=== PATIENT | female | born 1990 | race Caucasian/White ===

== ENCOUNTER 2016-09-20 08:10 | Inpatient (IN) | payer MEDICAID ==
[~2016-09-20] VITALS: Ht 147.3 cm; Wt 59.1 kg
[2016-09-20] VITALS (7 sets, daily range): BP systolic 102–139; BP diastolic 59–87; PULSE 60–78; RESP 16–18; TEMP 97.1–98; O2SAT 97–99
[~2016-09-20 08:10] MED LIST: BENT20TA PO; CLON1 OR; CLON1 PO; COZA100T PO; HYDR-2768 PO; IBUP-232 PO; KETO10 PO; NAPR-576 PO; PROM25TA5 PO; ROXI5TAB4 PO
[2016-09-20] MEDS ORDERED: SODIUM CHLORIDE 0.9% FLUSH 5 ML FLUSH IVF PRN ×2 (08:30→12:15)
[2016-09-20] MEDS ORDERED: SODIUM CHLOR 0.9% 1000 ML INJ 1,000 ML IV SCH (08:30)
[2016-09-20] MEDS ORDERED: KETOROLAC TROMETHAMINE 30 MG/ML (IVP) VIAL IVP ONE (08:30)
--- NOTE | 2016-09-20 08:33 | PD ---
HPI Chief Complaint: Abdominal Pain Time Seen by Provider: 08:30 Travel History International Travel<30 days: No Contact w/Intl Traveler<30days: No Traveled to known affect area: No History of Present Illness HPI 26-year-old female with history of previous hysterectomy and appendectomy, presents to the ER today because she started having a sudden onset 10 out 10 right lower quadrant pain with radiation to the right flank last night. She denies any vomiting, fevers, urinary symptoms, vaginal discharge, or any other symptoms. Modifying Factors: None Associated Signs & Symptoms: Right flank pain and right lower quadrant pain Risk Factors: None PFSH Past Medical History Hx Anticoagulant Therapy: No Anemia: Yes Cancer: No Chemotherapy: No Cerebrovascular Accident: No Diabetes: No Diminished Hearing: No Hypertension: Yes Neurologic: Yes (ptsd) Psychiatric: No Respiratory: No Seizures: No Thyroid Disease: No Ulcer: No Tetanus Vaccination: < 5 Years Influenza Vaccination: No ?: Not Past Surgical History Appendectomy: Yes Gynecologic Surgery: Yes (HYSTERECTOMY) Hysterectomy: Yes Social History Alcohol Use: Yes (OCASSIONALLY) Tobacco Use: Yes (1 PACK EVERY 3 DAYS) Substance Use: No Allergies-Medications (Allergen,Severity, Reaction): Coded Allergies: Codeine (Verified Allergy, Severe, Rash, 09/20/16) Latex (Verified Allergy, Severe, Rash, 09/20/16) Morphine (Verified Allergy, Severe, Rash, 09/20/16) Sulfa (Verified Allergy, Severe, Rash, 09/20/16) Reported Meds & Prescriptions Reported Meds & Active Scripts Active No Active Prescriptions or Reported Medications Review of Systems Except as stated in HPI: all other systems reviewed are Neg Physical Exam Narrative GENERAL: Well-nourished, well-developed young white female patient in mild distress. SKIN: Warm and dry. HEAD: Normocephalic. EYES: No scleral icterus. No injection or drainage. NECK: Supple, trachea midline. No JVD or lymphadenopathy. CARDIOVASCULAR: Regular rate and rhythm without murmurs, gallops, or rubs. RESPIRATORY: Breath sounds equal bilaterally. No accessory muscle use. GASTROINTESTINAL: Abdomen soft, right lower quadrant tenderness without guarding or rebound, nondistended. MUSCULOSKELETAL: No cyanosis, or edema. BACK: Nontender without obvious deformity. Mild right CVA tenderness. Data Data Last Documented VS Vital Signs Date Time Temp Pulse Resp B/P Pulse Ox O2 Delivery O2 Flow Rate FiO2 09/20/16 10:00 97.8 78 16 130/76 99 Room Air Orders Complete Blood Count With Diff (09/20/16 08:30) Comprehensive Metabolic Panel (09/20/16 08:30) Urinalysis - C+S If Indicated (09/20/16 08:30) Ct Abd/Pel W/O Iv Contrast (09/20/16 08:30) Iv Access Insert/Monitor (09/20/16 08:30) Ecg Monitoring (09/20/16 08:30) Oximetry (09/20/16 08:30) Sodium Chlor 0.9% 1000 Ml Inj (Ns 1000 M (09/20/16 08:30) Sodium Chloride 0.9% Flush (Ns Flush) (09/20/16 08:30) Ketorolac Inj (Toradol Inj) (09/20/16 08:30) Us Pelvis Comp W Dop Transvag (09/20/16 09:20) Diet Npo (09/20/16 Lunch) ^ Preps (09/20/16 12:04) Sodium Chloride 0.9% Flush (Ns Flush) (09/20/16 12:15) Lactated Ringer's 1000 Ml Inj (Lr 1000 M (09/20/16 12:00) Sodium Chloride 0.9% Flush (Ns Flush) (09/20/16 12:15) Cefazolin Inj (Ancef Inj) (09/20/16 12:15) Labs Laboratory Tests Test 09/20/16 09/20/16 08:25 08:30 Urine Color LIGHT-YELLOW Urine Turbidity CLEAR Urine pH 5.5 Urine Specific [place] 1.016 Urine Protein NEG mg/dL Urine Glucose (UA) NEG mg/dL Urine Ketones NEG mg/dL Urine Occult Blood NEG Urine Nitrite NEG Urine Bilirubin NEG Urine Urobilinogen LESS THAN 2.0 MG/DL Urine Leukocyte Esterase NEG Urine RBC 1 /hpf Urine WBC LESS THAN 1 /hpf Urine Squamous Epithelial 2 /hpf Cells Urine Bacteria RARE /hpf Microscopic Urinalysis Comment CULT NOT INDICATED White Blood Count 9.1 TH/MM3 Red Blood Count 5.03 MIL/MM3 Hemoglobin 16.1 GM/DL Hematocrit 46.0 % Mean Corpuscular Volume 91.5 FL Mean Corpuscular Hemoglobin 32.0 PG Mean Corpuscular Hemoglobin 35.0 % Concent Red Cell Distribution Width 12.8 % Platelet Count 267 TH/MM3 Mean Platelet Volume 8.4 FL Neutrophils (%) (Auto) 56.8 % Lymphocytes (%) (Auto) 33.6 % Monocytes (%) (Auto) 5.4 % Eosinophils (%) (Auto) 3.1 % Basophils (%) (Auto) 1.1 % Neutrophils # (Auto) 5.2 TH/MM3 Lymphocytes # (Auto) 3.1 TH/MM3 Monocytes # (Auto) 0.5 TH/MM3 Eosinophils # (Auto) 0.3 TH/MM3 Basophils # (Auto) 0.1 TH/MM3 CBC Comment DIFF FINAL Differential Comment Sodium Level 137 MEQ/L Potassium Level 4.4 MEQ/L Chloride Level 105 MEQ/L Carbon Dioxide Level 24.8 MEQ/L Anion Gap 7 MEQ/L Blood Urea Nitrogen 13 MG/DL Creatinine 1.04 MG/DL Estimat Glomerular Filtration 63 ML/MIN Rate Random Glucose 98 MG/DL Calcium Level 8.6 MG/DL Total Bilirubin 0.6 MG/DL Aspartate Amino Transf 20 U/L (AST/SGOT) Alanine Aminotransferase 23 U/L (ALT/SGPT) Alkaline Phosphatase 68 U/L Total Protein 7.5 GM/DL Albumin 4.0 GM/DL MDM Medical Decision Making Medical Screen Exam Complete: Yes Emergency Medical Condition: Yes Medical Record Reviewed: Yes Interpretation(s) Laboratory Tests Test 09/20/16 09/20/16 08:25 08:30 Urine Bacteria RARE /hpf (NONE) Hemoglobin 16.1 GM/DL (11.6-15.3) Creatinine 1.04 MG/DL (0.50-1.00) Estimat Glomerular Filtration 63 ML/MIN (>89) Rate Last 24 hours Impressions Abdomen/Pelvis/Transvag US 09/20/16 0920 Signed Impressions: Service Date/Time: Tuesday, September 20, 2016 10:16 - CONCLUSION: Thoracic uterus. Right ovary is enlarged relative left with both ovaries having follicular cysts . The right ovary raises the question as to This asymmetry representing exophytic normal tissue superior medially and there is a question as to limited vascular flow in a portion of the right ovary which would then raising question as to torsion or partial torsion Zaire Minor MD Abdomen/Pelvis CT 09/20/16 0830 Signed Impressions: Service Date/Time: Tuesday, September 20, 2016 08:41 - CONCLUSION: Surgical clips in the right lower quadrant adnexa associated 3.3 cm soft tissue density most likely ovarian with a history of prior hysterectomy. Clips in place prior appendectomy. Zaire Minor MD Differential Diagnosis Right lower quadrant and flank painsrenal colic versus pyelonephritis versus musculoskeletal Narrative Course Lab work initial CAT scan did not show any signs of acute processes. Ultrasound shows a right ovarian torsion. Case was discussed with Dr. Whipple who states the patient will need same-day surgery and evaluation with Dr. Smith. Diagnosis Primary Impression: TORSION OF RIGHT OVARY AND OVARIAN PEDICLE Admitting Information Admitting Physician Requests: Admit Scripts No Active Prescriptions or Reported Meds Jeanne Austin MD Sep 20, 2016 08:33
[2016-09-20 08:46] LABS: AUTOMATED NEUTROPHIL # 5.2 TH/MM3 (1.8-7.7); BASOPHIL # 0.1 TH/MM3 (0-0.2); BASOPHIL % 1.1 % (0.0-2.0); EOSINOPHIL # 0.3 TH/MM3 (0-0.4); EOSINOPHIL % 3.1 % (0.0-4.0); HEMO FLAGS DIFF FINAL; LYMPH % 33.6 % (9.0-44.0); LYMPHOCYTE # 3.1 TH/MM3 (1.0-4.8); MEAN CELL VOLUME 91.5 FL (80.0-100.0); MONO % 5.4 % (0.0-8.0); NEUT % 56.8 % (16.0-70.0); PLATELET COUNT 267 TH/MM3 (150-450); RED BLOOD COUNT 5.03 MIL/MM3 (4.00-5.30); RED CELL DISTRIBUTION WIDTH 12.8 % (11.6-17.2); WHITE BLOOD COUNT 9.1 TH/MM3 (4.0-11.0)
[2016-09-20 08:58] LABS: BACTERIA, URINE RARE /hpf; BLOOD, URINE NEG (NEG); COMMENT (UR) CULT NOT INDICATED; CULTURE IF INDICATED CULT NOT INDICATED; GLUCOSE,URINE NEG (NEG); KETONE, URINE NEG (NEG); NITRITE,URINE NEG (NEG); PH, URINE 5.5 (5.0-8.5); SQUAMOUS EPITHELIAL CELL URINE 2 /hpf (0-5); URINE COLOR LIGHT-YELLOW (YELLW/STRAW)
--- NOTE | 2016-09-20 09:14 | RADRPT ---
EXAM DATE/TIME: 09/20/2016 08:41 [facility] COMPARISON: No previous studies available for comparison. INDICATIONS : Right lower quadrant pain and nausea. ORAL CONTRAST: No oral contrast ingested. RADIATION DOSE: 24.77 CTDIvol (mGy) MEDICAL HISTORY : Hypertension. SURGICAL HISTORY : Appendectomy. Hysterectomy. ENCOUNTER: Initial ACUITY: 1 day PAIN SCALE: 4/10 LOCATION: None given TECHNIQUE: Volumetric scanning of the abdomen and pelvis was performed. Using automated exposure control and ad justment of the mA and/or kV according to patient size, radiation dose was kept as low as reasonably achievable to obtain optimal diagnostic quality images. FINDINGS: LOWER LUNGS: No acute process LIVER: Homogeneous density without lesion. There is no dilation of the biliary tree. No calcified gallston es. Gallbladder there is a luminal structure without wall thickening. SPLEEN: Normal size without lesion. PANCREAS: Within normal limits. KIDNEYS: Normal in size and shape. There is no mass, stone, or hydronephrosis. ADRENAL GLANDS: Within normal limits. VASCULAR: There is no aortic aneurysm. BOWEL/MESENTERY: The stomach, small bowel, and colon demonstrate no acute abnormality. There is no free intraperitone al air or fluid. Surgical clips are noted in the retrocecal region consistent with prior appendectomy . ABDOMINAL WALL: Within normal limits. RETROPERITONEUM: There is no lymphadenopathy. BLADDER: No wall thickening or mass. REPRODUCTIVE: Apparent hysterectomy prominent vaginal cuff. Surgical clips in the right adnexa associated with a 3. 3 cm soft tissue density possibly ovarian there INGUINAL: There is no lymphadenopathy or hernia. MUSCULOSKELETAL: Within normal limits for patient age. CONCLUSION: Surgical clips in the right lower quadrant adnexa associated 3.3 cm soft tissue density most likely o varian with a history of prior hysterectomy. Clips in place prior appendectomy. Zaire Minor MD on September 20, 2016 at 9:08 Board Certified Radiologist. This report was verified electronically.
[2016-09-20 09:17] LABS: ALKALINE PHOSPHATASE 68 U/L (45-117); ALT (GPT) 23 U/L (10-53); ANION GAP 7 MEQ/L (5-15); AST (GOT) 20 U/L (15-37); BICARBONATE 24.8 MEQ/L (21.0-32.0); BLOOD UREA NITROGEN 13 MG/DL (7-18); CHLORIDE 105 MEQ/L (98-107); GLOMERULAR FILTRATION RATE 63 ML/MIN (>89); POTASSIUM 4.4 MEQ/L (3.5-5.1); SODIUM (NA) 137 MEQ/L (136-145); TOTAL BILIRUBIN ADULT 0.6 MG/DL (0.2-1.0)
--- NOTE | 2016-09-20 11:22 | RADRPT ---
EXAM DATE/TIME: 09/20/2016 10:16 [facility] COMPARISON: CT ABDOMEN & PELVIS W/O CONTRAST, September 20, 2016, 8:41. INDICATIONS : Right pelvic pain. MEDICAL HISTORY : Right pelvic pain. SURGICAL HISTORY : Hysterectomy. ENCOUNTER: Initial ACUITY: 1 day PAIN SCORE: 8/10 LOCATION: Bilateral Paraspinal MEASUREMENTS: RIGHT OVARY: 6.2 x 3.2 x 2.1 cm LEFT OVARY: 4.1 x 2.5 x 2.0 cm UTERUS: Surgically absent RIGHT OVARY: 4.5 x 5.2 x 2.5 cm LEFT OVARY: 2.9 x 3.9 x 1.7 cm cm FINDINGS: Uterus is surgically absent. Left ovary is visualized to be normal with small follicular cysts. Right ovary is enlarged relative to the left with follicular cysts and question if this soft tissue densit y mass projecting off the superior aspect and/or medial aspect with arterial flow in the majority of the right ovary and questionable absence of arterial flow in a portion of the ovary. Possibility of t orsion or partial torsion is not excludable.. CONCLUSION: Thoracic uterus. Right ovary is enlarged relative left with both ovaries having follicular cysts . Th e right ovary raises the question as to This asymmetry representing exophytic normal tissue superior medially and there is a question as to l imited vascular flow in a portion of the right ovary which would then raising question as to torsion or partial torsion Zaire Minor MD on September 20, 2016 at 11:16 Board Certified Radiologist. This report was verified electronically.
[2016-09-20] MEDS: LACTATED RINGER'S 1000 ML INJ 1,000 ML IV SCH ×2 (12:00→20:00)
[2016-09-20] MEDS ORDERED: SODIUM CHLORIDE 0.9% FLUSH 5 ML FLUSH IVF SCH (12:15)
--- NOTE | 2016-09-20 12:30 | HHI.HP ---
HPI Chief Complaint Possible ovarian torsion, sudden onset of right adnexal pain Date Seen: Sep 20, 2016 Time Seen: 12:00 Travel History International Travel<30 Days: No Contact w/Intl Traveler<30Days: No Known Affected Area: No History of Present Illness HPI 26-year-old , patient presents to the emergency room with complaints of sudden onset of sharp and excruciating right lower quadrant pain, pain started last night and continued all night and this morning patient decided to come to the emergency room to seek medical help, the patient stated her pain is constant and associated with nausea, she denies vomiting, fever, chills. Pain score is 10 out of 10. Patient is status post laparoscopic hysterectomy in May 2015, status post appendectomy. Patient underwent evaluation with a pelvic ultrasound which reveals uterus is surgically absent. Left ovary is visualized to be normal with small follicular cyst. Right ovary is enlarged relative to the left with follicular cysts and questionable soft tissue density mass projecting off the superior aspect and all medial aspect of the right ovary with arterial flow in the majority of the right ovary and questionable absence of arterial flow in her portion of the ovary. Possibility of ovarian torsion or partial torsion is not excludable. Conclusion absent uterus, right ovary is enlarged relative to the left with both ovaries having follicular cysts. The right ovary raises the question as to possible torsion or partial torsion Based on the above findings the HANDLE ROUNDER OPERATOR consult was requested. Para: 3 : 3 Miscarriage: 0 : 0 History Past Medical History Narrative Medical History of endometriosis, depressive disorder, anxiety disorder. Obstetric History Obstetric History Spontaneous vaginal delivery 3 Past Surgical History Narrative Surgical 1. Status post laparoscopic hysterectomy in May 2015 due to endometriosis 2. Status post appendectomy Family History Narrative Family History Significant for mother with ovarian cancer, grandfather with colon cancer, cousin with cervical cancer, also family history significant for hypertension and diabetes. Social History Alcohol Use: No Tobacco Use: Yes (patient's postoperative pack of cigarettes a day) Substance Abuse: No Allergies-Medications (Allergen,Severity, Reaction): Coded Allergies: Codeine (Verified Allergy, Severe, Rash, 09/20/16) Latex (Verified Allergy, Severe, Rash, 09/20/16) Morphine (Verified Allergy, Severe, Rash, 09/20/16) Sulfa (Verified Allergy, Severe, Rash, 09/20/16) Home Meds No Active Prescriptions or Reported Meds Review of Systems Except as stated in HPI: all other systems reviewed are Neg Gastrointestinal: Nausea, Abdominal Pain Genitourinary: Other (a right lower quadrant pain, right adnexal pain) Physical Exam Narrative GENERAL: Well-nourished, well-developed patient. SKIN: Warm and dry. HEAD: Normocephalic and atraumatic. EYES: No scleral icterus. No injection or drainage. ENT: No nasal drainage noted. Mucous membranes pink. Airway patent. NECK: Supple, trachea midline. No JVD. CARDIOVASCULAR: Regular rate and rhythm without murmurs, gallops, or rubs. RESPIRATORY: Breath sounds equal bilaterally. No accessory muscle use. BREASTS: Bilateral exam showed no masses , no retractions, no nipple discharge. ABDOMEN/GI: Abdomen soft, non-tender, bowel sounds present, minimal rebound, moderate guarding GENITOURINARY: External Genitalia: intact and normal in appearance BUS glands: Normal PELVIC EXAM: severe tenderness in the right adnexa is noted with minimal rebound and guarding, Cervix and uterus are surgically absent EXTREMITIES: No cyanosis or edema. BACK: Nontender without obvious deformity. No CVA tenderness. NEUROLOGICAL: Awake and alert. Motor and sensory grossly within normal limits. Five out of 5 muscle strength in all muscle groups. Normal speech. Data Data Vital Signs Reviewed: Yes Orders Complete Blood Count With Diff (09/20/16 08:30) Comprehensive Metabolic Panel (09/20/16 08:30) Urinalysis - C+S If Indicated (09/20/16 08:30) Ct Abd/Pel W/O Iv Contrast (09/20/16 08:30) Iv Access Insert/Monitor (09/20/16 08:30) Ecg Monitoring (09/20/16 08:30) Oximetry (09/20/16 08:30) Sodium Chlor 0.9% 1000 Ml Inj (Ns 1000 M (09/20/16 08:30) Sodium Chloride 0.9% Flush (Ns Flush) (09/20/16 08:30) Ketorolac Inj (Toradol Inj) (09/20/16 08:30) Us Pelvis Comp W Dop Transvag (09/20/16 09:20) Diet Npo (09/20/16 Lunch) ^ Preps (09/20/16 12:04) Sodium Chloride 0.9% Flush (Ns Flush) (09/20/16 12:15) Lactated Ringer's 1000 Ml Inj (Lr 1000 M (09/20/16 12:04) Sodium Chloride 0.9% Flush (Ns Flush) (09/20/16 12:15) Cefazolin Inj (Ancef Inj) (09/20/16 12:15) Labs Laboratory Tests Test 09/20/16 09/20/16 08:25 08:30 Urine Color LIGHT-YELLOW Urine Turbidity CLEAR Urine pH 5.5 Urine Specific [place] 1.016 Urine Protein NEG Urine Glucose (UA) NEG Urine Ketones NEG Urine Occult Blood NEG Urine Nitrite NEG Urine Bilirubin NEG Urine Urobilinogen LESS THAN 2.0 Urine Leukocyte Esterase NEG Urine RBC 1 Urine WBC LESS THAN 1 Urine Squamous Epithelial 2 Cells Urine Bacteria RARE Microscopic Urinalysis Comment CULT NOT INDICATED White Blood Count 9.1 Red Blood Count 5.03 Hemoglobin 16.1 Hematocrit 46.0 Mean Corpuscular Volume 91.5 Mean Corpuscular Hemoglobin 32.0 Mean Corpuscular Hemoglobin 35.0 Concent Red Cell Distribution Width 12.8 Platelet Count 267 Mean Platelet Volume 8.4 Neutrophils (%) (Auto) 56.8 Lymphocytes (%) (Auto) 33.6 Monocytes (%) (Auto) 5.4 Eosinophils (%) (Auto) 3.1 Basophils (%) (Auto) 1.1 Neutrophils # (Auto) 5.2 Lymphocytes # (Auto) 3.1 Monocytes # (Auto) 0.5 Eosinophils # (Auto) 0.3 Basophils # (Auto) 0.1 CBC Comment DIFF FINAL Differential Comment Sodium Level 137 Potassium Level 4.4 Chloride Level 105 Carbon Dioxide Level 24.8 Anion Gap 7 Blood Urea Nitrogen 13 Creatinine 1.04 Estimat Glomerular Filtration 63 Rate Random Glucose 98 Calcium Level 8.6 Total Bilirubin 0.6 Aspartate Amino Transf 20 (AST/SGOT) Alanine Aminotransferase 23 (ALT/SGPT) Alkaline Phosphatase 68 Total Protein 7.5 Albumin 4.0 Assessment/Plan Problem List: (1) Right lower quadrant abdominal pain (2) Ovarian torsion Assessment and Plan 26-year-old 003 with sudden onset of right lower quadrant abdominal pain, ultrasound shows possible right ovarian torsion. Patient is hemodynamically stable. Patient seen by Dr. Hicks and she recommended the following 1. Possible right ovarian torsion/abdominal pain * Will admit patient to HANDLE ROUNDER OPERATOR service * Patient may eat and drink * Serial abdominal exams * IV fluids hydration * Pain management Dr. Cathy Omer is notified and also saw the patient Discharge Planning We'll discharge patient to home after evaluation and treatment is accomplished Daniele Harris MD Sep 20, 2016 12:30 Daniele Harris MD Sep 20, 2016 12:30
[2016-09-20] MEDS ORDERED: LACTATED RINGER'S 1000 ML INJ 1,000 ML IV SCH (14:00)
[2016-09-20] MEDS ORDERED: KETOROLAC TROMETHAMINE 60 MG/2 ML (IM) VIAL IM PRN (14:00)
[2016-09-20] MEDS ORDERED: SODIUM CHLORIDE 0.9% FLUSH 5 ML FLUSH IV FLUSH PRN (14:00)
[2016-09-20] MEDS: SODIUM CHLORIDE 0.9% FLUSH 5 ML FLUSH IV FLUSH SCH ×2 (14:39→21:16)
[2016-09-20] MEDS: oxyCODONE/ACETAMINOPHEN 5 MG/325 MG TAB PO PRN ×2 (14:39→21:14)
--- NOTE | 2016-09-20 18:31 | MB ---
cc: SUSANA VILLAREAL MD DATE OF CONSULTATION 09/20/[address] Chanel Whipple HISTORY OF PRESENT ILLNESS The patient is a 26-year-old 3, para 0-3-0-3. The patient presents to the ER with right lower quadrant pain. She states the pain came on last evening after taking a shower and lying down. She says the pain is worse with certain movements and radiates around to her back. She also had some nausea. She denies fever or chills. She also denies vomiting, no change in her bowels, maybe slightly more frequent urination. No pain with urination. She wants to avoid surgery if possible. PAST MEDICAL HISTORY Significant for endometriosis. PAST OBSTETRICAL HISTORY She had three pregnancies with vaginal deliveries, all around 32 weeks gestation. PAST SURGICAL HISTORY 1. She had a laparoscopic hysterectomy with bilateral salpingectomies in May 2015 with a doctor near [place] who she does not recall the name of. 2. She has also had an appendectomy. FAMILY HISTORY Noncontributory. SOCIAL HISTORY The patient drinks alcohol socially. She smokes cigarettes and also smokes marijuana occasionally. 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 ALLERGIES CODEINE LATEX MORPHINE SULFA MEDICATIONS At home are none. PHYSICAL EXAMINATION VITAL SIGNS: She is afebrile. Her vitals are all stable. HEART: Regular rate and rhythm. LUNGS: Clear to auscultation bilaterally. ABDOMEN: Soft, nondistended. There is mild right lower quadrant tenderness. There is no rebound. There is minimal guarding. EXTREMITIES: Lower extremities are nontender, non edematous. PELVIC: On bimanual exam, the cervix is absent. No adnexal masses are palpated. The patient does have mild right lower quadrant tenderness. LABORATORY DATA White count of 9, hemoglobin of 16.1, hematocrit of 46 and platelets of 267. Chemistries are within normal limits except for creatinine elevated at 1.04. Liver enzymes were grossly within normal limits. Her urine also appears negative, culture not indicated. IMAGING STUDIES Ultrasound - uterus is surgically absent. Left ovary grossly normal, right ovary with blood flow to most of the ovary. The right ovary is also slightly enlarged measuring 4.5 x 5.2 x 2 cm. Possible torsion could not be ruled out on the report. IMPRESSION 1. Pelvic pain. No evidence for an acute surgical abdomen. I did review options with the patient of proceeding to surgery now versus a trial of pain medications to see if her pain improves. If the patient's pain worsens and is unable to be controlled with pain medications, we would perform a diagnostic laparoscopy. The patient prefers conservative management. At this point, would recommend treating the patient with Toradol around the clock and assessing for improvement. Please call with any additional problems or concerns. MD JOSE El/ /1:07 PM /6:11 PM [facility]
[2016-09-21] VITALS: BP 121/82; PULSE 60; RESP 16; TEMP 97.5; O2SAT 100
[2016-09-21 04:00] VITALS: BP 109/68; PULSE 88; RESP 14; TEMP 97.7; O2SAT 98
[2016-09-21] MEDS: LACTATED RINGER'S 1000 ML INJ 1,000 ML IV SCH (04:00)
[2016-09-21] MEDS: oxyCODONE/ACETAMINOPHEN 5 MG/325 MG TAB PO PRN ×2 (05:30→09:32)
[2016-09-21 08:00] VITALS: BP 100/62; PULSE 59; RESP 16; TEMP 96.8; O2SAT 100
[2016-09-21] MEDS: SODIUM CHLORIDE 0.9% FLUSH 5 ML FLUSH IV FLUSH SCH (09:12)
[2016-09-21] MEDS ORDERED: PERC2.5T PO (11:19)
[2016-09-21] MEDS ORDERED: IBUP-232 PO (11:19)
--- NOTE | 2016-09-21 11:29 | HHI.PR ---
Subjective Remarks This patient 26-year-old white female with history of hysterectomy in the past now with right lower quadrant pain. She is admitted for observation and control of pain. Initial ultrasound was suspicious for possible torsion. Today the patient states that her pain is much better she's feeling better she' s able to eat go to the bathroom without problem Exam-abdomen is flat essentially nontender in all quadrants no rebound pain no masses noted Impression is likely ruptured ovarian cyst right side it is improving spontaneously, plan is discharge the patient home with a few Percocets and Motrin 600 mg she is to have increased rest of the next 2-3 days, and return for any worsening symptoms. Objective Vital Signs Date Time Temp Pulse Resp B/P Pulse Ox O2 Delivery O2 Flow Rate FiO2 09/21/16 08:00 96.8 59 16 100/62 100 09/21/16 04:00 97.7 88 14 109/68 98 09/21/16 00:00 97.5 60 16 121/82 100 09/20/16 20:00 97.1 65 16 121/87 99 09/20/16 16:00 98.0 64 16 114/67 09/20/16 14:00 97.3 60 18 107/59 99 09/20/16 12:33 97.8 76 16 102/71 99 I/O 09/20/16 09/20/16 09/20/16 09/21/16 09/21/16 09/21/16 07:00 15:00 23:00 07:00 15:00 23:00 Intake Total 720 ml 960 ml Balance 720 ml 960 ml Intake Oral 720 ml 960 ml # Voids 3 2 # Bowel Movements 0 Result Diagram: 09/20/1630 09/20/1630 Pawel Branch II, MD Sep 21, 2016 11:29
== END 2016-09-21 11:53 | disposition home or self-care (01) | DRG 761 ==
LOC: NEPC 08:10 → HSDC 12:22 → HSDI 14:01 → HOCA 14:23
PROVIDERS: ADMIT Obstetrics & Gynecology; ATTEND Obstetrics & Gynecology
DX: N83.02 Follicular cyst of left ovary (principal); N83.01 Follicular cyst of right ovary; I10 Essential (primary) hypertension; Z90.710 Acquired absence of both cervix and uterus; F43.10 Post-traumatic stress disorder, unspecified; F17.210 Nicotine dependence, cigarettes, uncomplicated; Z90.49 Acquired absence of other specified parts of digestive tract; Z80.41 Family history of malignant neoplasm of ovary; Z80.0 Family history of malignant neoplasm of digestive organs; Z80.8 Family history of malignant neoplasm of other organs or systems
CPT/HCPCS: 74176; 76830; 76856; 80053; 81001; 85025; 93975; 96361; 96374; J1885; J7030

== ENCOUNTER 2017-08-19 11:18 | Emergency (ER) | payer SELFPAY ==
[~2017-08-19] VITALS: Ht 149.9 cm; Wt 49.1 kg
[~2017-08-19 11:18] MED LIST changes: -BENT20TA PO; -CLON1 OR; -CLON1 PO; -COZA100T PO; -HYDR-2768 PO; -KETO10 PO; -NAPR-576 PO; +PERC2.5T PO; -PROM25TA5 PO; -ROXI5TAB4 PO
[2017-08-19 11:27] VITALS: BP 126/87; PULSE 86; RESP 16; TEMP 99; O2SAT 99
--- NOTE | 2017-08-19 11:50 | PD ---
HPI Chief Complaint: Skin Problem Time Seen by Provider: 11:36 Travel History International Travel<30 days: No Contact w/Intl Traveler<30days: No Traveled to known affect area: No History of Present Illness HPI 27-year-old female presents to the emergency department for evaluation of bilateral breast pain, worse in the left with lumps in her left breast as well as a lymph node to her left axilla. Patient states the symptoms have been ongoing for approximately 2 months. Patient denies any personal history of breast cancer, but states that her cousin who is 32 was just diagnosed with breast cancer. She reports subjective chills. No fevers. No other symptoms or complaints. She does report history of hysterectomy. No exacerbating or alleviating factors. Moderate severity. PFSH Past Medical History Hx Anticoagulant Therapy: No Anemia: Yes Anxiety: Yes Cancer: Yes (cervix) Cardiovascular Problems: Yes (htn, not on meds) Chemotherapy: No Cerebrovascular Accident: No Diabetes: No Diminished Hearing: No Hypertension: Yes Neurologic: Yes (ptsd) Psychiatric: No Respiratory: No Immunizations Current: Yes Seizures: No Thyroid Disease: No Ulcer: No ?: Not Past Surgical History Appendectomy: Yes Gynecologic Surgery: Yes (HYSTERECTOMY) Hysterectomy: Yes Other Surgery: No Social History Alcohol Use: No Tobacco Use: Yes (patient's postoperative pack of cigarettes a day) Substance Use: No Allergies-Medications (Allergen,Severity, Reaction): Coded Allergies: Sulfa (Sulfonamide Antibiotics) (Unverified Allergy, Severe, Rash, ) codeine (Unverified Allergy, Severe, Rash, 08/19/17) latex (Unverified Allergy, Severe, Rash, 08/19/17) morphine (Unverified Allergy, Severe, Rash, 08/19/17) Reported Meds & Prescriptions Reported Meds & Active Scripts Active No Active Prescriptions or Reported Medications Review of Systems Except as stated in HPI: all other systems reviewed are Neg Physical Exam Narrative GENERAL: Well-nourished, well-developed female patient, ambulatory. Afebrile. SKIN: Focused skin assessment warm/dry. No erythema or warmth of her bilateral breasts. No evidence of cellulitis or abscess. Patient has tenderness throughout left breast with what appears to be polycystic breast. She does have a small lymph node to the left axilla that is tender to palpation. HEAD: Normocephalic. Atraumatic. EYES: No scleral icterus. No injection or drainage. NECK: Supple, trachea midline. No JVD or lymphadenopathy. CARDIOVASCULAR: Regular rate and rhythm without murmurs, gallops, or rubs. RESPIRATORY: Breath sounds equal bilaterally. No accessory muscle use. Lungs sounds are clear to auscultation. GASTROINTESTINAL: Abdomen soft, non-tender, nondistended. MUSCULOSKELETAL: No cyanosis, or edema. Data Data Last Documented VS Vital Signs Date Time Temp Pulse Resp B/P (MAP) Pulse Ox O2 Delivery O2 Flow Rate FiO2 08/19/17 11:27 99.0 86 16 126/87 (100) 99 Room Air Orders Orders Mandatory Outpatient Referral (08/19/17 11:42) MDM Medical Decision Making Medical Screen Exam Complete: Yes Emergency Medical Condition: Yes Medical Record Reviewed: Yes Differential Diagnosis Polycystic breast versus breast mass versus cellulitis versus abscess Narrative Course 27-year-old female presents to the emergency department for evaluation of breath pain, lumps to her breast. Physical exam reveals tenderness throughout the left breast with what appears to be multiple lumps or cysts. She does have a lymph node to the left axilla. No evidence of cellulitis, abscess on exam. Mandatory referral was placed for breast Navigator. She verbalizes agreement to this. She is return here for any acute worsening of symptoms including fever , erythema, warmth, evidence of infection. The patient was discharged in stable condition with instructions, including return instructions and follow up instructions. Diagnosis Primary Impression: Breast pain in female Referrals: Primary Care Physician call for appointment Patient Instructions: Breast Self Exam for Women (ED), General Instructions Additional Instructions: A mandatory referral was placed. They will be in contact for further evaluation. Follow-up with your primary care physician. Return to the emergency department for any acute worsening of symptoms. Med/Other Pt SpecificInfo: No Change to Meds Scripts No Active Prescriptions or Reported Meds Disposition: 01 DISCHARGE HOME Condition: Stable Cathy Romero KEENAN Aug 19, 2017 11:50
== END 2017-08-19 12:10 | disposition home or self-care (01) ==
LOC: NEPD 11:18
DX: N64.4 Mastodynia (principal); N63.20 Unspecified lump in the left breast, unspecified quadrant; F17.210 Nicotine dependence, cigarettes, uncomplicated
CPT/HCPCS: 99282

== ENCOUNTER 2018-02-12 13:53 | Emergency (ER) | payer OTHER, MEDICAID ==
[~2018-02-12] VITALS: Ht 162.6 cm; Wt 65.0 kg
[2018-02-12 14:02] VITALS: BP 137/64; PULSE 71; RESP 22; TEMP 98.5; O2SAT 99
[2018-02-12 14:13] VITALS: BP 137/64; PULSE 69; RESP 16; O2SAT 95
[2018-02-12] MEDS ORDERED: ACETAMINOPHEN/HYDROcodone 325 MG/5 MG TAB PO ONE (14:15)
[2018-02-12 14:53] LABS: AUTOMATED NEUTROPHIL # 5.4 TH/MM3 (1.8-7.7); BASOPHIL # 0.1 TH/MM3 (0-0.2); BASOPHIL % 0.8 % (0.0-2.0); EOSINOPHIL # 0.2 TH/MM3 (0-0.4); EOSINOPHIL % 2.1 % (0.0-4.0); HEMATOCRIT 41.2 % (35.0-46.0); LYMPH % 26.7 % (9.0-44.0); LYMPHOCYTE # 2.3 TH/MM3 (1.0-4.8); MEAN CELL VOLUME 90.5 FL (80.0-100.0); MEAN CORPUSCULAR HEMOGLOBIN 30.7 PG (27.0-34.0); MEAN PLATELET VOLUME 8.5 FL (7.0-11.0); MONO % 6.2 % (0.0-8.0); MONOCYTE # 0.5 TH/MM3 (0-0.9); NEUT % 64.2 % (16.0-70.0); PLATELET COUNT 193 TH/MM3 (150-450); RED BLOOD COUNT 4.55 MIL/MM3 (4.00-5.30); RED CELL DISTRIBUTION WIDTH 12.7 % (11.6-17.2); WHITE BLOOD COUNT 8.4 TH/MM3 (4.0-11.0)
[2018-02-12 15:24] LABS: AST (GOT) 15 U/L (15-37); BICARBONATE 22.9 MEQ/L (21.0-32.0); BLOOD UREA NITROGEN 13 MG/DL (7-18); CALCIUM 8.5 MG/DL (8.5-10.1); CHLORIDE 109 MEQ/L (98-107); CREATININE 0.92 MG/DL (0.50-1.00); GLOMERULAR FILTRATION RATE 72 ML/MIN (>89); GLUCOSE,RANDOM 98 MG/DL (74-106); SODIUM (NA) 141 MEQ/L (136-145)
[2018-02-12 15:27] LABS: ALKALINE PHOSPHATASE 53 U/L (45-117); ALT (GPT) 21 U/L (10-53); TOTAL BILIRUBIN ADULT 1.5 MG/DL (0.2-1.0); TOTAL PROTEIN 7.2 GM/DL (6.4-8.2)
[2018-02-12] MEDS ORDERED: IOHEXOL 350 MG/ML 10 ML VIAL (for RAD DIAG) IVCONTRAST ONE (15:58)
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
[2018-02-12 16:10] VITALS: BP 114/57; PULSE 61; RESP 14; O2SAT 98
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
[2018-02-12] MEDS ORDERED: CYCL10TA PO (17:07)
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
== END 2018-02-12 17:20 | disposition home or self-care (01) ==
LOC: NEPC 13:53
DX: M54.2 Cervicalgia (principal); R51 Headache; R07.89 Other chest pain; M25.561 Pain in right knee; M25.551 Pain in right hip; S40.812A Abrasion of left upper arm, initial encounter; V47.9XXA Unspecified car occupant injured in collision with fixed or stationary object in traffic accident, initial encounter; I10 Essential (primary) hypertension; F43.10 Post-traumatic stress disorder, unspecified; F17.210 Nicotine dependence, cigarettes, uncomplicated; Z88.5 Allergy status to narcotic agent; Z88.2 Allergy status to sulfonamides
CPT/HCPCS: 70450; 71260; 72125; 73564; 74177; 80053; 85025; 99285; Q9967